=== PATIENT | female | born 1990 | race Caucasian/White ===

== ENCOUNTER 2024-08-10 14:27 | Outpatient (CLI) | payer MEDICAID, SELFPAY ==
--- NOTE | 2024-08-10 14:45 | CRLHL7_ITS ---
For Patients: As a result of the Century Cures Act, medical imaging exams and procedure reports are released immediately into your electronic medical record. You may view this report before your referring provider. If you have questions, please contact your health care provider. INDICATION: 33 year-old female. First trimester scan, establish dates. COMPARISON: None TECHNIQUE: Real-time johnson-scale imaging of the pelvis was performed. FINDINGS: Sonographic imaging demonstrates a single living intrauterine gestation. The embryo demonstrates a regular cardiac rate measuring 163 beats per minute. The embryo`s crown-rump length measurement of 2.3 cm corresponds to a gestational age of 9 weeks 0 days with a sonographic due date of March 15, 2025. There is a normal-appearing yolk sac measuring 3 mm. There are no gross abnormalities noted within the embryo at this early state of development. The placenta has not yet developed. The gestational sac has a normal appearance. Subchorionic hemorrhage anteriorly measuring 30 x 11 x 13 mm. The amount of fluid within the sac appears appropriate for gestational age. The cervix is closed. The myometrium appears normal. The ovaries are of normal size. The right ovary measures 2.6 x 1.7 x 1.4 cm. The left ovary measures 3.3 x 2.5 x 2.5 cm contains a small corpus luteum cyst of . There are no suspicious fluid collections noted in the cul-de-sac. IMPRESSION: Single living intrauterine . Gestational age calculated at 9 weeks 0 day with a sonographic due date of March 15, 2025. Subchorionic hemorrhage. Dictated by Monty Montez MD @ 08/11/2024 9:58:23 AM (Electronically Signed)
== END 2024-08-10 14:28 | disposition home or self-care (01) ==
PROVIDERS: Visit Provider Registered Nurse
DX: Z34.91 Encounter for supervision of normal pregnancy, unspecified, first trimester (principal); O20.9 Hemorrhage in early pregnancy, unspecified; Z3A.09 9 weeks gestation of pregnancy
CPT/HCPCS: 76817; 83021; 86592; 86703; 86704; 86706; 86762; 86787; 86803; 86850; 86900; 86901; 87086; 87340; 87491; 87591

== ENCOUNTER 2024-08-10 16:03 | Outpatient (CLI) | payer MEDICAID, SELFPAY ==
[2024-08-10 21:56] LABS: Chlamydia DNA Amplified* NOT DETECTED (No Detected); GC DNA Amplified* NOT DETECTED (No Detected)
== END 2024-08-10 16:04 | disposition home or self-care (01) ==
PROVIDERS: Visit Provider Registered Nurse
DX: Z34.91 Encounter for supervision of normal pregnancy, unspecified, first trimester (principal); Z3A.09 9 weeks gestation of pregnancy
CPT/HCPCS: 83021; 86592; 86703; 86704; 86706; 86762; 86787; 86803; 86850; 86900; 86901; 87086; 87340; 87491; 87591

== ENCOUNTER 2024-10-26 14:46 | Outpatient (CLI) | payer MEDICAID, SELFPAY | END 2024-10-26 14:47 | disposition home or self-care (01) | LOC: US 14:47 | PROVIDERS: Visit Provider Advanced Practice Midwife | DX: Z34.92 Encounter for supervision of normal pregnancy, unspecified, second trimester (principal); Z3A.20 20 weeks gestation of pregnancy | CPT/HCPCS: 76805 ==

== ENCOUNTER 2024-12-22 14:46 | Outpatient (CLI) | payer MEDICAID, SELFPAY | END 2024-12-22 14:47 | disposition home or self-care (01) | LOC: NFLDREF 12-26 07:04 | PROVIDERS: Visit Provider Advanced Practice Midwife | DX: Z34.93 Encounter for supervision of normal pregnancy, unspecified, third trimester (principal); Z3A.28 28 weeks gestation of pregnancy | CPT/HCPCS: 86592 ==

== ENCOUNTER 2025-01-19 14:22 | Outpatient (CLI) | payer MEDICAID, SELFPAY | END 2025-01-19 14:23 | disposition home or self-care (01) | LOC: NFLDREF 01-26 03:12 | PROVIDERS: Visit Provider Advanced Practice Midwife | DX: O99.019 Anemia complicating pregnancy, unspecified trimester (principal); D64.9 Anemia, unspecified; Z3A.32 32 weeks gestation of pregnancy | CPT/HCPCS: 82728 ==

== ENCOUNTER 2025-02-16 13:49 | Outpatient (CLI) | payer MEDICAID, SELFPAY ==
[2025-02-17 15:04] LABS: Strep B DNA Probe Negative (Negative)
[2025-02-17 15:05] LABS: Strep B Susceptibility Needed? No
== END 2025-02-16 13:50 | disposition home or self-care (01) ==
LOC: NFLDREF 13:49
PROVIDERS: Visit Provider Advanced Practice Midwife
DX: Z34.93 Encounter for supervision of normal pregnancy, unspecified, third trimester (principal); Z3A.36 36 weeks gestation of pregnancy
CPT/HCPCS: 82728; 87081; 87653

== ENCOUNTER 2025-02-24 11:48 | Outpatient (RCR) | payer MEDICAID, SELFPAY ==
--- NOTE | 2025-02-22 10:43 | ONC.NURNOTE ---
Diagnosis: Iron deficiency anemia in
[2025-02-24 12:11] VITALS: BP 118/74; PULSE 96; RESP 16; TEMP 36.4; O2SAT 100
[2025-02-24] MEDS: IRON DEXTRAN COMPLEX 25 MG in 0.9 % SODIUM CHLORIDE 100 ml 100 ML 402 MG IVPB (12:58)
[2025-02-24 13:20] VITALS: BP 114/75; PULSE 92; RESP 16; TEMP 36.6; O2SAT 98
[2025-02-24] MEDS: IRON DEXTRAN COMPLEX 975 MG in 0.9 % SODIUM CHLORIDE 250 ml 250 ML 270 MG IVPB (14:20)
[2025-02-24] MEDS: ACETAMINOPHEN 325 MG TABLET 650 MG PO (15:29)
[2025-02-24] MEDS: CALCIUM CARBONATE 500 MG CHEW 1000 MG PO (15:30)
--- NOTE | 2025-02-24 16:18 | ONC.NURNOTE ---
INFeD Adverse Effects 45 min into Infed primary infusion pt notes heart burn and headache. She notes she does get heartburn occasionally r/t , but the food she's eating currently does not cause it. She is drinking coffee, sparkling water and eating chocolate covered espresso beans currently. She manages with Tums prn effectively. Pt also notes slight headache; not sure if related to iron infusion or just spontaneous. She denies s/s anaphylaxis. Stopped iron infusion. VSS. Reviewed with Sarika Childers APRN; recommend contacting ordering provider, Shwetha Wakefield CNM to discuss order for Tums, as pt does not have Tums with her. Per Shwetha, give 1000 mg Tums and 650 mg Tylenol x 1 orally. Pt agreeable to this plan. Gave at 1530. Symptoms resolved at 1600. Resumed last 15 min of iron infusion. Completed without incident.
[2025-02-24 16:38] VITALS: BP 113/73; PULSE 85; RESP 20; TEMP 36.9; O2SAT 97
[2025-02-24] MEDS: SODIUM CHLORIDE 0.9 % (FLUSH) 10 ML SYRINGE IVF (16:48)
[2025-02-24 17:30] VITALS: BP 123/74; PULSE 94; RESP 18; TEMP 37; O2SAT 98
== END 2025-08-23 23:59 | disposition home or self-care (01) ==
LOC: CCIC 11:48
PROVIDERS: Visit Provider Clinical Nurse Specialist
DX: O99.013 Anemia complicating pregnancy, third trimester (principal); D50.9 Iron deficiency anemia, unspecified
CPT/HCPCS: 96365; A9270; J1750; J7050

== ENCOUNTER 2025-03-04 18:58 | Outpatient (CLI) | payer MEDICAID, SELFPAY ==
[2025-03-04 19:10] VITALS: BP 133/84; PULSE 100; PULSE 107; O2SAT 98
[2025-03-04 19:52] LABS: Amnisure Rom* Negative
--- NOTE | 2025-03-04 20:46 | PC.OBNST ---
NST Note NST Note Start: 03/04/25 20:45 Freq: ONCE Status: Active Protocol: Document 03/04/25 20:45 ARAMIS (Rec: 03/04/25 20:46 ARAMIS [id number]) NST Note EDC 03/11/25 Gestational Age In 39 Weeks & 0 Days Weeks & Days Patient Presented Contractions/cramping with Complaint(s) of Reactive Yes Appropriate for Yes Gestational Age SERA Saha RN Date 03/04/25 Reactive Yes Appropriate for Yes Gestational Age SERA Castle CNM Date 03/04/25 OB NST charge Yes Complete NST Note Yes via Write Note The provider's electronic signature indicates the NST is reactive/appropriate for gestational age. *Note to provider: If an addendum is required, open the patient's chart and click on the note under the Nurse/Allied Health tab.
== END 2025-03-04 20:47 | disposition home or self-care (01) ==
LOC: OB OUT 19:01 → OB 19:07
PROVIDERS: Visit Provider Advanced Practice Midwife
DX: O47.1 False labor at or after 37 completed weeks of gestation (principal); Z3A.39 39 weeks gestation of pregnancy
CPT/HCPCS: 59025; 84112; G0463

== ENCOUNTER 2025-03-08 22:22 | Outpatient (CLI) | payer MEDICAID, SELFPAY ==
[2025-03-08 22:36] VITALS: BP 121/77; PULSE 88
--- NOTE | 2025-04-24 16:02 | PC.OBNST ---
NST Note NST Note Start: 03/08/25 22:25 Freq: ONCE Status: Discharge Protocol: Document 03/08/25 23:55 WALLACE (Rec: 03/08/25 23:58 WALLACE [id number]) NST Note 3 Para (# of births) 2 EDC 03/11/25 Gestational Age In 39 Weeks & 4 Days Weeks & Days Patient Presented Contractions/cramping with Complaint(s) of Reactive Yes RN Keagan Tsai, RN Date 03/08/25 Reactive Yes SERA Mueller RN Date 03/08/25 OB NST charge Yes Complete NST Note Yes via Write Note The provider's electronic signature indicates the NST is reactive/appropriate for gestational age. *Note to provider: If an addendum is required, open the patient's chart and click on the note under the Nurse/Allied Health tab.
== END 2025-03-09 00:35 | disposition home or self-care (01) ==
LOC: OB OUT 22:22 → OB 22:22
PROVIDERS: Visit Provider Advanced Practice Midwife
DX: O47.1 False labor at or after 37 completed weeks of gestation (principal); Z3A.39 39 weeks gestation of pregnancy
CPT/HCPCS: 59025; G0463; A9270; J2270

== ENCOUNTER 2025-03-09 16:40 | Inpatient (IN) | payer MEDICAID, SELFPAY ==
[2025-03-09] VITALS (9 sets, daily range): BP systolic 126–142; BP diastolic 77–86; PULSE 79–108; TEMP 36.5–36.8; O2SAT 97–100; BMI 26.2
--- NOTE | 2025-03-09 16:38 | W.PM.LDBA ---
Subjective History of Present Illness Narrative: Patient is being admitted to Labor and Delivery for spontaneous labor at term. She is a 34 year old at 39.5 weeks gestation. Her full history and physical was dictated by Laura Wakefield CNM on 02/23/25. Please see this for details. She was seen in triage overnight but did not make cervical change. She was seen in the clinic today and was found to be 4.5cm/90%. Since her appointment she has 'lost more mucus plug and has been robert. She states that they have been increasing in intensity and frequency since that time. She denies leaking fluid or bleeding and is appreciating good movement. On exam after arrival she was found to be 6cm/90%/-2. We discussed the option of AROM but she is desiring to wait at this time. Agreeable with this plan. Se desires to labor in the tub but declines water . offered to have her sign so she has the option but declines. Specific Issues/Plans G 3 P 2001 H&P by Laura Wakefield CNM 02/23/25 : Kartik, Its a boy! #Anemia Hgb 8.6 at 28 weeks iron supplements ordered, taking Vit C supplement already Recheck Hgb at 32 week: 9.0, improving after just 2 weeks, desires to continue oral Recheck hgb at 36 weeks: 8.7-initiating IV iron infusions, completed 02/24 # History of anemia during both previous pregnancies. Both required iron infusions. # Scoliosis Anesthesia referral placed 11/23/24. Declines. # Fundal placenta location per M. Recommend care during 3rd stage to prevent uterine inversion. Imaging: Anatomy US-10/28/24-1. Concordance of sonographic and clinical age. 2. Normal anatomic survey. 3. Increased retroplacental vascularity could suggest placenta accreta spectrum disorder. Follow-up in 1-2 weeks recommended for repeat assessment. M US 11/01/24-No anomalies noted and growth appropriate. Placenta and uteroplacental interface appear WNL. Fundal location of placenta noted. Care during 3rd stage to reduce risk of uterine inversion. Vaccinations: Flu: Recommended. Declines. Covid: Recommended booster. Declines. Tdap: 02/02/25 RSV: [] 32 week mental health: PHQ9 5, GAD7 0 Last pap: May 2022, normal according to patient report. Denies history of abnormal Paps. OB - Problem Based A/P Additional Plan (1) Pain during labor: Status: Acute (2) Scoliosis (and kyphoscoliosis), idiopathic: Status: Acute (3) Anemia affecting , antepartum: Status: Acute Plan ASSESSMENT:? at 39.5 weeks gestation? GBS negative? complicated by: amenia requiring IV iron infusions, scoliosis, and fundal placenta? Elevated BP on admit? Postterm IOL? Blood type:?B+ ?? PLAN:? 1. Candidate for analgesia of choice. Planning unmedicated .?May desire hydrotherapy but declines water . 5. Offered AROM but declines at this time. Will consider if labor stalls or per patient preference. 6. Anticipate ? 7. Expectant management at this time.? 8. Intermittent auscultation per policy unless patient condition changes. Delivery/Labor/Induction Plan Plan: expectant management OB Result Labs Blood Type: B (+) positive Rubella: immune RPR/VDLR: nonreactive GBS Status: negative HBsAG: negative OB Exam Physical Exam Vital signs: Temp Pulse BP Pulse Ox 98.2 F 81 131/80 100 03/09/25 16:02 03/09/25 16:02 03/09/25 16:02 03/09/25 16:03 Narrative: Psychiatric:? Alert and oriented x3? HEENT:? Normocephalic, atraumatic? Neck:? Supple without adenopathy or thyromegaly? Lungs:? Clear to auscultation bilaterally? Heart:? Regular rate and rhythm, no murmur, rub or gallop? Abdomen:? Soft, nontender, and gravid? Extremities:? No edema or erythema? Detailed Labor and Delivery Exam Dilation (cm): 6 Effacement (%): 90 Cervix position: mid Consistency: soft Contraction Frequency: 2-6 Tachysystole: No Contraction intensity: Strong/Firm Fetus (Single) Station: -2 Amniotic Membrane Status: intact Heart Rate Baseline: 120 Monitor Accelerations: Present Monitor Decelerations: None Electromechanical Assembly Technician Variability: Moderate (6-25)
[2025-03-09 17:55] LABS: Hematocrit 37.0 % (33.0-51.0); Hemoglobin* 11.1 gm/dL (12.0-16.0); Immature Granulocytes Abs Auto 0.10 K/uL (0.00-0.30); Immature Granulocytes Pct Auto 0.8 %; Mean Corpuscular HGB Conc 30 gm/dL (32-36); Mean Corpuscular Hemoglobin 22 pg (26-34); Mean Corpuscular Volume 74 fL (80-100); RDW Coefficient of Variation % 27.6 % (11.5-15.5); Red Blood Count 4.97 m/uL (4.00-5.20); White Blood Count* 13.20 K/uL (4.50-11.00)
[2025-03-09 18:08] LABS: Lymphocytes Absolute Auto 2.00 K/uL (0.90-2.90); Slide Review Reflex Yes
[2025-03-09 19:49] LABS: Slide Review Acceptable Review (Acceptable)
--- NOTE | 2025-03-09 22:13 | P.OBPN_ITS ---
Subjective Time Seen by Provider: 21:45 Date Seen: 03/09/25 Narrative: Mame continues to contract every 2-4 minutes. She feels they are closer together than they were initially but about the same intensity. She has been encouraged by me and the RN to ambulate and use labor warm up or miles circuit to encourage and promote physiologic labor but has been staying in bed to this point. She was agreeable to a SVE and was found to be mostly unchanged at 6cm/90%/-1. We again discussed AROM but declines. She would like to reevaluate for possible AROM again in 2-3 hours. Again encouraged upright positions and gravity in addition to the prior recommendations to promote labor and cervical change and discussed the benefits of this. Verbalizes understanding. Objective Vital Signs: Last Vital Signs Temp 97.7 F 03/09/25 19:17 Pulse 79 03/09/25 20:56 BP 139/82 03/09/25 20:56 Pulse Ox 98 03/09/25 20:25 Pelvic Exam Dilation (cm): 6 Effacement (%): 90 Station: -1 Contractions Monitor mode: External Contraction Frequency: 2-4 Contraction pattern: Regular Contraction intensity: Moderate (some strong) Assessment Assessment: active labor Station: -1 Status: Category l Heart Rate Baseline: 120 Senior Living Variability: Moderate (6-25) Monitor Accelerations: Present Monitor Decelerations: None Plan Plan: at 39.5 weeks gestation? GBS negative? complicated by: amenia requiring IV iron infusions, scoliosis, and fundal placenta? Blood type:?B+ Reassuring with intermittent monitoring Labor type:active labor Labor complicated by: unchanged cervical dilation in >4 hours ?? PLAN:? 1. Candidate for analgesia of choice. Planning unmedicated .?May desire hydrotherapy but declines water . 2. Offered AROM again but declines at this time. Would like to reevaluate in 2-3 hours and will consider AROM at that time. 3. Anticipate ? 4. Expectant management at this time.? 5. Patient encouraged to reposition and ambulate to promote physiologic labor and . 6. Intermittent auscultation per policy unless patient condition changes. ??
[2025-03-10] VITALS (30 sets, daily range): BP systolic 122–185; BP diastolic 81–100; PULSE 72–111; RESP 14–17; TEMP 36.4–36.9; O2SAT 96–100
--- NOTE | 2025-03-10 00:36 | P.OBPN_ITS ---
Subjective Time Seen by Provider: 00:36 Date Seen: 03/10/25 Narrative: Mame has continued to contract regularly every 2-4 minutes and is coping very well with contractions. Minimal cervical change has been noted and no change in this exam from the last. Discussed again AROM option. She is agreeable to that at this time. Scant amount of clear fluid was noted with AROM. Pt tolerated well. Will continue to mointor for leaking of fluid given the mimimal amount noted. Objective Vital Signs: Last Vital Signs Temp 98.1 F 03/09/25 23:06 Pulse 88 03/09/25 23:06 BP 130/84 03/09/25 23:06 Pulse Ox 98 03/09/25 20:25 Pelvic Exam Dilation (cm): 7 Effacement (%): 90 Station: -1 Contractions Monitor mode: External Contraction Frequency: 2-4 Contraction pattern: Regular Contraction intensity: Moderate (some strong) Assessment Assessment: active labor Station: -1 Amniotic Membrane Status: AROM Status: Category l Heart Rate Baseline: 125 Residential Variability: Moderate (6-25) Monitor Accelerations: Present Monitor Decelerations: None Plan Plan: at 39.6 weeks gestation? GBS negative? complicated by: amenia requiring IV iron infusions, scoliosis, and fundal placenta? Blood type:?B+ Reassuring with intermittent monitoring Labor type: active labor Labor complicated by: slow cervical change ?? PLAN:? 1. Candidate for analgesia of choice. Planning unmedicated .?May desire hydrotherapy but declines water . 2. AROM with scant amount of clear fluid. Will continue to monitor for leaking of fluid. 3. Anticipate ? 4. Expectant management at this time.? 5. Patient encouraged to reposition and ambulate to promote physiologic labor and . 6. Intermittent auscultation per policy unless patient condition changes.
[2025-03-10 02:12] LABS: Hematocrit 35.2 % (33.0-51.0); Hemoglobin* 10.6 gm/dL (12.0-16.0); Mean Corpuscular HGB Conc 30 gm/dL (32-36); Mean Corpuscular Hemoglobin 22 pg (26-34); Mean Corpuscular Volume 74 fL (80-100); Red Blood Count 4.74 m/uL (4.00-5.20); White Blood Count* 12.27 K/uL (4.50-11.00)
[2025-03-10 02:17] LABS: Slide Review Reflex No
[2025-03-10 02:27] LABS: Alanine Aminotransferase* 94 U/L (4-35); Aspartate Amino Transferase* 66 U/L (12-35); Blood Urea Nitrogen* 8 mg/dL (5-24); Creatinine* 0.6 mg/dL (0.5-1.5); Est. Creatinine Clearance* 125.30; Estimated Glomerular Filt Rate 122 ml/min
--- NOTE | 2025-03-10 05:26 | P.OBPN_ITS ---
Subjective Date Seen: 03/10/25 Narrative: Mame has continued to contract but her contraction have started to space somewhat over the last couple of hours. She is robert every 2-6 minutes and more irregularly. She endorses that they feel about the same to her, she is continuing to cope well and remains in bed despite encouragement for position changes. She is able to rest between contractions. She is continuing to leak a small amount of clear fluid per her report and as noted on her pad mixed with normal discharge. On SVE she was only slightly more dilated fro 7-7.5 but otherwise unchanged in station or effacement. We discussed stalled labor and she is agreeable to Pitocin augmentation. Blood pressures have been elevated mostly 130-140/80's with an occasional reading in the 120's. AST and ALT are elevated at 66 and 94 respectively. P/C ratio not collected due to ROM. Denies headaches, RUQ pain or visual changes. Objective Vital Signs: Last Vital Signs Temp 97.8 F 03/10/25 03:55 Pulse 96 03/10/25 04:55 BP 131/89 03/10/25 04:55 Pulse Ox 98 03/09/25 20:25 Pelvic Exam Dilation (cm): 7.5 Effacement (%): 90 Station: -1 Contractions Monitor mode: External Contraction Frequency: 2-6 Contraction pattern: Regular Contraction intensity: Moderate (some strong) Assessment Assessment: prodromal labor Station: -1 Amniotic Membrane Status: AROM Status: Category l Heart Rate Baseline: 120 Associate Trainer Variability: Moderate (6-25) Monitor Accelerations: Present Monitor Decelerations: None Plan Plan: at 39.6 weeks gestation? GBS negative? complicated by: amenia requiring IV iron infusions, scoliosis, and fundal placenta? Blood type:?B+ Reassuring with continuous monitoring Preeclampsia without severe features based on elevated blood pressure not in severe range and ALT >2 times normal range Labor type: active labor Labor complicated by: slow cervical change ?? PLAN:? 1. Candidate for analgesia of choice. Planning unmedicated .?May desire hydrotherapy but declines water . 2. Reviewed expectant management vs Pitocin augmentation. She is agreeable to augmentation. 3. Continue to monitor blood pressures and symptoms. 4. Anticipate ?? 5. Patient encouraged to reposition and ambulate to promote physiologic labor and . 6. Continuous monitoring per policy. 7. IV placement for Pitocin titration.
[2025-03-10] MEDS: OXYTOCIN 30 unit/500 ML in NS 30 UNIT/500 ML BAG IVPB (05:36)
[2025-03-10] MEDS: LACTATED RINGERS 1000 ML 1,000 ML 75 ML IV ×2 (05:37→19:06)
--- NOTE | 2025-03-10 09:43 | P.OBPN_ITS ---
Subjective Time Seen by Provider: 09:30 Date Seen: 03/10/25 Narrative: Mame is a at 39 6/7 weeks gestation that presented last evening in spontneous labor. Her labor stalled overnight and she was augmented with AROM and IV pitocin. She continues on pitocin at this time and is coping well, just starting to feel more contractions. She has been encouraged to changes positions but doesn't feel she has been able to due to contraction pain. She is coping well with contractions at this time and supported in labor by her . We discussed plan of care to increase pitocin at this time. SVE at 0833 shows minimal change with head now well applied to the cervix. In review of pat ients chart and labs, it was noted that ALT was 94, twice the upper limit of normal meeting criteria for pre-eclampsia with severe features. Dr. Castillo was consulted and agrees with diagnosis. Objective Exam: Objective: Constitutional: Alert and oriented x3, moderate distress, coping well Vital signs stable, see nurse documentation Abdomen: gravid, contractions palpate moderate/strong with contractions and soft between Cervix: 7 cm/90%/0 station/vertex NST: 120 bpm/moderate variability/15x15 accelerations/no de celerations/contractions every 2-3 minutes Vital Signs: Last Vital Signs Temp 98.3 F 03/10/25 09:25 Pulse 85 03/10/25 09:28 BP 152/97 H 03/10/25 09:28 Pulse Ox 98 03/09/25 20:25 Assessment Amniotic Membrane Status: AROM Status: Category l Heart Rate Baseline: 120 Monitor Accelerations: Present Monitor Decelerations: None Plan Plan: at 39.6 weeks gestation? GBS negative? complicated by: amenia requiring IV iron infusions, scoliosis, and fundal placenta? Blood type:?B+ Reassuring with continuous monitoring Preeclampsia severe features based on elevated blood pressure not in severe range and ALT >2 times normal range Labor type: active labor Labor complicated by: Protracted active labor ?? PLAN:? 1. Candidate for analgesia of choice. Planning unmedicated . 2. Continue with Pitocin augmentation for protracted active labor. 3. Reviewed labs results with Dr. Castillo who was consulted for ALT >2x normal range. Initiated Magnesium sulfate and repeat labs ordered. Dr. Elan fuller will co-manage during labor and assume care . Plan of care reviewed with patient who reports understanding and agrees with plan. 4. Continue to monitor blood pressures, reviewed that we would treat elevated BP's depending on severity but potential for oral treatment if they persist . 5. Patient encouraged to reposition and ambulate to promote physiologic labor and . 6. Continuous monitoring per policy. 7. Anticipate vaginal delivery.
[2025-03-10] MEDS: MAGNESIUM IV 4 GM/100 ML PIGGYBACK IVPB (10:12)
[2025-03-10 10:16] LABS: Hematocrit 36.3 % (33.0-51.0); Hemoglobin* 11.0 gm/dL (12.0-16.0); Mean Corpuscular HGB Conc 30 gm/dL (32-36); Mean Corpuscular Hemoglobin 22 pg (26-34); Mean Corpuscular Volume 74 fL (80-100); Red Blood Count 4.91 m/uL (4.00-5.20); White Blood Count* 12.80 K/uL (4.50-11.00)
[2025-03-10 10:17] LABS: Slide Review Reflex No
[2025-03-10 10:28] LABS: Alanine Aminotransferase* 104 U/L (4-35); Aspartate Amino Transferase* 67 U/L (12-35); Blood Urea Nitrogen* 7 mg/dL (5-24); Creatinine* 0.6 mg/dL (0.5-1.5); Est. Creatinine Clearance* 128.58; Estimated Glomerular Filt Rate 122 ml/min
[2025-03-10] MEDS: MAGNESIUM Infusion 40 GM/1,000 ML IV.SOLN IVPB (10:48)
--- NOTE | 2025-03-10 11:42 | W.PM.OBVAGDE ---
OB Procedure Vag Delivery Mother Details Mother Details: The patient is a 34 year-old, 3, now Para 3, admitted on 03/09/25 at 39.5 weeks gestation. : 3 Para: 3 Weeks Gestation: 39.3 Admission Date: 03/09/25 Additional Details Amniotic Membrane Status: AROM Amniotic Membrane Rupture Date: 03/10/25 Amniotic Membrane Rupture Time: 00:33 Amniotic Membrane Fluid Description: Clear Analgesia/Anesthesia Type: None Waterbirth: No Pitcoin: Yes Intrapartal Events: Labor Augmentation Delivery augmentation: rupture of membranes and pitocin Labor Onset: 17:33 Complete: 10:52 Pushin:52 Heart: heart tones during second stage were reassuring as 2nd stage was only 1 push. Delivery Details Delivery Date: 03/10/25 Delivery Time: 10:53 Route of delivery: Gender: Male Infant Viability: Alive; Heart Rate Present Delivery Details: Patient was admitted for spontaneous onset of labor but stalled at 7 cm. Her protractive active labor was managed with augmentation of AROM and pitocin. AROM of clear fluid at 0033 did not increase contraction frequency, therefore pitocin was started around 530 am. Labor was complicated by elevated blood pressures and labs were consistent with Pre-eclampsia with SF. She was started on IV magnesium sulfate around 958. She was encouraged to move to help labor progression but felt it was too uncomfortable. CNM was at bedside when patient starting to feel pressure but when it did not change, she stepped away. She was again encouraged to move and when patient turned, she felt a strong urge to push the told the nurse she felt the head was out. Patient was assumed complete with her one push at 1052, CNM was urgently called back to bedside. of a viable male at 1053, delivered by the RNJoy. Per RN, uncomplicated Vertex delivered OA. No nuchal cord or shoulder. Body delivered easily and without incident. 2nd RN at bedside at time of delivery. CNM arrived to room about 2 minutes after delivery. was placed on mothers abdomen with a vigorous cry. Cord was clamped and cut at > 5 minutes. APGARS were 9 at one minute and 9 at five minutes respectively. Intact placenta with a 3 vessel cord delivered spontaneously at 1102. Fundus firm. 1st degree vaginal laceration identified and repaired in typical fashion. QBL 650 cc. Bleeding resolved with aggressive fundal massage, mother declined catheter but was able to sit on the bedpan to attempt to void. Fundal massage did express some urine and uterine bleeding improved. AMTSL with IV pitocin. Mother and baby stable; mother plans to breastfeed. Infant weight 7lb 12oz. 1 Minute Interval Total Score: 9 5 Minute Interval Total Score: 9 Additional Details Shoulder Dystocia: No Placenta Delivery Time: 11:02 Placental Delivery Description: Spontaneous Delivery repair: Vicryl Procedure Done: Global Blood Loss: 650 Laceration: Perineal - 1st Degree Blood Loss Measurement Type: QBL Bakri Used: No Sponge/Need Count Correct: Yes Cord Vessel Description: 3 Vessels Event Summary Status: Mother and were stable after delivery. Care to be assumed by MD for management of Pre-eclampsia with SF. Disposition: floor
[2025-03-10] MEDS: ACETAMINOPHEN 500 MG TABLET 1000 MG PO ×2 (11:59→20:09)
--- NOTE | 2025-03-10 15:07 | P.OBCN_ITS ---
OB - CN: HPI Date of Consult Time Seen by Provider: 16:15 Date Seen: 03/10/25 Patient: [facility] Patient Consult date: 03/10/25 Requesting Physician: Chani Castle CNM Primary Care Provider: Not a Local Provider Consult Narrative Reason for consult: other (Preeclampsia with severe features) Narrative: Mame is a 34 year old G 3 P 3 who is status post normal spontaneous vaginal delivery this morning at 10:53 a.m.. She had a male infant. Her intrapartum course was complicated by elevated blood pressure and abnormally elevated transaminases at 2:00 a.m. this morning: ALT 94 and AST 66. She met criteria for severe preeclampsia by elevated liver enzymes at that time that was not identified by the [facility] caring for the patient. Chani Castle CNM noted the transaminitis when she was contacted this morning by nursing staff for a severe- range BP at 9:28am 185/95 on repeat was 152/92. When the transaminitis was identified, Chani requested a consultation for preeclampsia with severe features. She was started on magnesium sulfate for seizure prophylaxis and pre eclampsia labs were ordered STAT then Q6hr x4. Mame denies headaches, RUQ pain, visual disturbance and swelling. She is doing relatively well on magnesium: feels more tired than she would expect after a vaginal delivery and feels dizzy/woozy when she gets up. Denies weakness and SOB. I reviewed risks of preeclampsia and that she may need to be started on antihypertensive medication(s) temporarily as preeclampsia resolves. I reassured the patient that these medications are safe for breast feeding. History of Present Dating criteria: based on LMP care: good care Ultrasounds: normal 1st trimester US and normal mid trimester US complications: preeclampsia and other (anemia requiring iron infusions) History History 3 Elective abortions Para 3 Spontaneous abortions Hx # Term Pregnancies Ectopic pregnancies Hx # Pregnancies Multiple births Number of Living Children 2 Past Pregnancies Del. Date GA/Weeks Outcome Route wt Inf Gender Labor Lgth Anesthesia Location Provider Compli 05/25/20 39 live - full term 7 lb 11.8 oz Fema le 5.5hrs, 13 min pushing none [facility] 11/16/22 39 live - full term 8 lb 7 oz Female 5hrs labor, 5 min pushing [facility] Delivery Date: 11/16/22 Last Updated by: Shwetha Wakefield CNM anemia, IOL with AROM Labs Blood type: B (+) positive Rubella: immune RPR/VDLR: nonreactive GBS status: negative HBsAG: negative OB Labs: Lab Assessment Start: 03/09/25 16:38 Freq: ONCE Status: Complete Protocol: PC.OBGBS Activity Type Activity Date Activity User E-sign Co-sign Detail Recorded Client Recorded Date Recorded By Document 03/09/25 16:46 HCR [id number] 03/09/25 16:52 HCR 03/09/25 16:46 Lab Assessment GBS Status negative GBS Additional Criteria None No Treatment Needed OK Are Labs Available Yes Maternal Blood Type B Maternal RH Factor Positive Evaluate Maternal Rubella Immune Status Immune Hepatitis B Surface Antigen Negative Maternal HIV Status Negative Maternal Syphillis (RPR) Status Negative PFSH PFSH Medical History Acne ?L70.9 - Acne, unspecified (ICD-10) Varicella ?B01.9 - Varicella without complication (ICD-10) Spontaneous vaginal delivery ?O80 - Encounter for full-term uncomplicated delivery (ICD-10) Iron deficiency anemia ?D50.9 - Iron deficiency anemia, unspecified (ICD-10) Anemia complicating ?O99.019 - Anemia complicating , unspecified trimester (ICD-10) Surgical History H/O eye surgery ?Z98.890 - Other specified postprocedural states (ICD-10) Family History Father High blood pressure High cholesterol Mother High cholesterol Social History Narrative: [place]. Lives in [place]. What is your current living situation?: I presently have a place to live Problems where you live: no known problems In the past 12 months, utilities in danger of being shut off: no In past 12 months, lack of transportation kept you from medical appts, meetings, work, or getting things needed for daily living: no In the past 12 mos, have been you worried that your food would run out before you had money to buy more?: never true In the past 12 mos, the food you bought just didn't last and you didn't have mon ey to buy more?: never true Smoking Status: Never smoker How often does anyone, including family, friends and others, physically hurt you : never How often does anyone, including family, friends and others, insult or talk down to you: never How often does anyone, including family, friends and others, threaten you with harm: never How often does anyone, including family, friends and others, scream or curse at you: never Meds Home Medications and Allergies Home Medications ?Medication ?Instructions ?Recorded ?Confirmed ?Type biotin 10,000 mcg chewable tablet mcg PO 08/10/2405/26 History (Hair, Skin and Nails (biotin)) docosahexaenoic acid 200 mg mg PO 08/10/24 03/09/25 Hi story capsule ( DHA) vitamin D3 1,250 mcg (50,000 cap PO 08/10/24 03/09/25 History unit)-vitamin K2 200 mcg capsule ascorbate calcium (vitamin C) 500 500 mg PO QDAY 09/1503/10/25 History mg tablet calcium carbonate (Tums) 200 mg PO BID 11/23/2403/10 History magnesium glycinate mg PO .QD 02/02/25 03/09/25 History Allergies Allergy/AdvReac Type Severity Reaction Status Date / Time grass pollen Allergy Mild Verified 03/09/25 15:57 mold Allergy Mild Verified 03/09/25 15:57 tree pollen Allergy Mild Uncoded 03/09/25 13:18 OB - H&P: Exam Physical Exam: Vital signs: Temp Pulse Resp BP Pulse Ox O2 Del Method 97.9 F 107 H 16 132/89 96 Room Air 03/10/25 14:55 03/10/25 14:55 03/10/25 14:55 03/10/25 14:55 03/10/25 14:55 03/10/25 14:55 Narrative: General: Pleasant, well-groomed woman in no acute distress. Vital signs: per the patient's EMR Heart: Regular rate and rhythm without gallop, rub or murmur. Chest: Clear to auscultation bilaterally. Abdomen: Uterus is firm, midline at the umbilicus. Otherwise: soft, nontender and nondistended with normal bowel sounds throughout. Extremities: No pain or edema Neurologic: DTR's at bilateral patella: 2+/2, no clonus OB - Results Labs Labs: Short CBC 03/09/25 03/10/25 03/10/25 Range/Units 17:49 02:00 10:05 WBC 13.20 H 12.27 H 12.80 H (4.50-11.00) K/uL Hgb 11.1 L 10.6 L 11.0 L (12.0-16.0) gm/dL Hct 37.0 35.2 36.3 (33.0-51.0) % Plt Count 239 247 262 (140-440) K/uL BMP 03/10/25 03/10/25 02:00 10:05 BUN 8 7 Creatinine 0.6 0.6 Liver Function 03/10/25 03/10/25 Range/Units 02:00 10:05 AST 66 H 67 H (12-35) U/L ALT 94 H 104 H (4-35) U/L OB - CN: A/P Assessment and Plan (1) Pain during labor: Status: Deleted (2) Severe preeclampsia: Status: Acute Plan 1. Continue magnesium sulfate for seizure prophylaxis until 24hr (10:53Am on 03/11) 2. Continue serial preeclampsia labs every 6hr x4. 3. Start Nifedipine ER 30mg daily for BP control. Modify dose if needed. 4. Continue care. 5. Dr. Jimena Granados to assume care on 03/11/25 at 7am.
[2025-03-10 17:18] LABS: Hematocrit 28.1 % (33.0-51.0); Hemoglobin* 8.5 gm/dL (12.0-16.0); Mean Corpuscular HGB Conc 30 gm/dL (32-36); Mean Corpuscular Hemoglobin 23 pg (26-34); Mean Corpuscular Volume 74 fL (80-100); Red Blood Count 3.78 m/uL (4.00-5.20); Slide Review Reflex No; White Blood Count* 15.52 K/uL (4.50-11.00)
[2025-03-10 17:39] LABS: Alanine Aminotransferase* 82 U/L (4-35); Aspartate Amino Transferase* 68 U/L (12-35); Blood Urea Nitrogen* 6 mg/dL (5-24); Creatinine* 0.5 mg/dL (0.5-1.5); Est. Creatinine Clearance* 154.30; Estimated Glomerular Filt Rate 128 ml/min
--- NOTE | 2025-03-10 22:49 | PM.EN ---
Chart Event Note Time Seen by Provider: 10:00 Date Seen: 03/10/25 Chart Event Note: Patient was escorted to the bathroom by her family member where she sat up from the bathroom and reports that she fell into the wall and bumped her head. Her family member was able to help her sit back down and the Nurse was notified. She was assisted to the bed and vitals were taken. RN reports a neuro exam was normal. Patient reports feeling light headed when getting up but improved when in the bed. She has not eaten for the last few hours and has not slept much today. She is also on IV magnesium for pre-eclampsia with SF. CNM was asked to see patient as MD provider was busy in the OR. CNM evaluated patient at bedside, no bruising noted on patient head, normal conversation and response. Findings are all WNL. Encouraged patient to try to eat something, offered some juice or caffeine, and encouraged rest. She agrees with plan. MD was made aware of findings. No further follow-up needed.
[2025-03-10 23:10] LABS: Hematocrit 29.1 % (33.0-51.0); Hemoglobin* 8.7 gm/dL (12.0-16.0); Mean Corpuscular HGB Conc 30 gm/dL (32-36); Mean Corpuscular Hemoglobin 23 pg (26-34); Mean Corpuscular Volume 76 fL (80-100); Red Blood Count 3.85 m/uL (4.00-5.20); White Blood Count* 13.60 K/uL (4.50-11.00)
[2025-03-10 23:16] LABS: Slide Review Reflex No
[2025-03-10 23:41] LABS: Alanine Aminotransferase* 84 U/L (4-35); Aspartate Amino Transferase* 57 U/L (12-35); Blood Urea Nitrogen* 5 mg/dL (5-24); Creatinine* 0.6 mg/dL (0.5-1.5); Est. Creatinine Clearance* 128.58; Estimated Glomerular Filt Rate 122 ml/min
[2025-03-11] VITALS (14 sets, daily range): BP systolic 113–129; BP diastolic 70–84; PULSE 79–107; RESP 16–20; TEMP 36.3–36.8; O2SAT 98–100
[2025-03-11 05:24] LABS: Hematocrit 24.2 % (33.0-51.0); Mean Corpuscular HGB Conc 31 gm/dL (32-36); Mean Corpuscular Hemoglobin 23 pg (26-34); Mean Corpuscular Volume 76 fL (80-100); Red Blood Count 3.20 m/uL (4.00-5.20); White Blood Count* 10.44 K/uL (4.50-11.00)
[2025-03-11 05:28] LABS: Hemoglobin* 7.4 gm/dL (12.0-16.0); Slide Review Reflex No
[2025-03-11 05:38] LABS: Alanine Aminotransferase* 63 U/L (4-35); Aspartate Amino Transferase* 39 U/L (12-35); Blood Urea Nitrogen* 4 mg/dL (5-24); Creatinine* 0.5 mg/dL (0.5-1.5); Est. Creatinine Clearance* 154.30; Estimated Glomerular Filt Rate 128 ml/min
[2025-03-11] MEDS: FERROUS SULFATE 325 MG TABLET PO (06:33)
[2025-03-11] MEDS: ACETAMINOPHEN 500 MG TABLET 1000 MG PO (06:38)
[2025-03-11] MEDS: LACTATED RINGERS 1000 ML 1,000 ML 75 ML IV (08:19)
--- NOTE | 2025-03-11 10:08 | P.OBPN_ITS ---
OB - PN:Subj Subjective Time Seen by Provider: 07:45 Date Seen: 03/11/25 Narrative: Mame is a 34 year old G 3 P 3 who is status post on 03/10 at 10:53 a.m with CNM service. QBL with delivery was 650mL, where bedside RN delivered the . She was noted to have elevated BPs (including nonsustained SRBP) and severe range transaminitis, meeting criteria for preE with SF. She was started on magnesium sulfate for seizure prophylaxis, serial HELLP labs have been obtained and started on nifedipine XL [address] Castillo's note from yesterday for complete details. Mame is overall feeling well today, just fatigued. She has intermittent headache, attributed to pain from a fall yesterday. She notes this responds to ibuprofen and Tylenol. She has decreased visual acuity and intermittent double vision, attributed to magnesium sulfate. No scotoma or evidence of SHOE DES[employer]ER irritability at this time. No right upper quadrant pain. Overnight, her blood pressures have been normal on nifedipine. Serial HELLP labs have demonstrated interval improvement in her transaminitis. She does have a down trending hemoglobin. Patient denies any dizziness/ lightheadedness, chest pain or dyspnea at rest. She notes she feels more stable on her feet, but at times may still feel a bit lightheaded. She attributes this symptoms to the magnesium. She notes that she is unable to tolerate p.o. pills well, where she cannot take her p.o. iron. She does have liquid iron that her is bringing. That said, I explained that she did not respond to this when so I do think a blood transfusion could be necessary versus repeat IV iron. She notes abdominal and perineal pain is well controlled. Describes minimal normal lochia. Tolerating p.o. intake without nausea vomiting. Voiding spontaneously, robust output. Passing flatus and BM. No calf tenderness, erythema or lower extremity swelling. OB - PN: Obj Exam Physical Exam: Vital signs: Temp Pulse Resp BP Pulse Ox O2 Del Method 97.6 F 90 16 123/82 99 Room Air 03/11/25 08:15 03/11/25 08:15 03/11/25 08:15 03/11/25 08:15 03/11/25 08:15 03/11/25 08:15 Narrative: VS reviewed and are within normal limits. Patient had been tachycardic overnight - resolved since 0 200 this morning. General: Alert and oriented, in no acute distress. Somewhat pale in appearance. Psych: Appropriate mood and affect Heart: Regular rate and rhythm without gallop, rub or murmur. Chest: Clear to auscultation bilaterally. Abdomen: Soft, nontender nondistended. Fundus palpated firm at umbilicus. Extremities: No peripheral edema. Calves without tenderness or erythema. OB - PN: Obj Data Labs Labs: Laboratory Results - last 24 hr 03/10/25 03/10/25 03/10/25 10:05 17:02 22:50 WBC 12.80 H 15.52 H 13.60 H RBC 4.91 3.78 L 3.85 L Hgb 11.0 L 8.5 L 8.7 L Hct 36.3 28.1 L 29.1 L MCV 74 L 74 L 76 L MCH 22 L 23 L 23 L MCHC 30 L 30 L 30 L Plt Count 262 280 277 BUN 7 6 5 Creatinine 0.6 0.5 0.6 Estimated Creat Clear 128.58 154.30 128.58 Estimated GFR 122 128 122 Magnesium 6.5 H* 7.6 H* AST 67 H 68 H 57 H ALT 104 H 82 H 84 H 03/11/25 05:15 WBC 10.44 RBC 3.20 L Hgb 7.4 L* Hct 24.2 L MCV 76 L MCH 23 L MCHC 31 L Plt Count 264 BUN 4 L Creatinine 0.5 Estimated Creat Clear 154.30 Estimated GFR 128 Magnesium 6.0 H* AST 39 H ALT 63 H OB - PN: A/P Delivery Assessment and Plan (1) Severe preeclampsia: Status: Acute Plan Mame is a 34yo seen on PPD1 from [facility]. Intrapartum course complicated by development of preE with SF (transaminitis) and acute blood loss anemia. 1. Continue magnesium sulfate for seizure prophylaxis until 24hr , ending at 10:53 Am on 03/11 2. Continue serial preeclampsia labs every 6hr. Transaminitis is noted to improve throughout hospitalization. 3. Continue Nifedipine ER 30mg daily for BP control. Blood pressures have been normal overnight - plan to modify dose if necessary. Patient is asymptomatic, aside from intermittent headache that does respond a Tylenol/ibuprofen. 4. Monitor for ongoing signs/symptoms of acute blood loss anemia. AM hemoglobin of 7.4, where patient notes she does have slight dizziness with ambulation but attributes that to feeling woozy off magnesium. No tachycardia, dizziness, chest pain or dyspnea. discussed that a blood transfusion could be indicated for symptomatic anemia with a hemoglobin of less than 8. Patient would like to wait and see how she feels after magnesium is off. In addition, she has a repeat set of labs at 11 this morning. Plan to reassess following this result. She notes she is unable to tolerate p.o. iron, where she is using a liquid iron instead. Of note, she did not respond well to this in where she would have a persistent hemoglobin of 8.7 despite her liquid iron. She did have significant improvement after an IV iron transfusion, but patient noted that it was not very well tolerated as she had acid reflux with this. she previously had different IV iron transfusions in her other pregnancies where she received repeat courses, wonders if this could be an option if needed. Plan to reassess following repeat labs at 11 and will diligently monitor symptoms. 5. Continue care and support. 6. Dr. Cris Castillo to assume care on 03/12/25 at 7am. Disposition: recommend patient remain inpatient until at least 24 hours after discontinuation of magnesium sulfate. Potential for dismissal to home tomorrow afternoon.
[2025-03-11 11:10] LABS: Hematocrit 24.7 % (33.0-51.0); Mean Corpuscular HGB Conc 30 gm/dL (32-36); Mean Corpuscular Hemoglobin 23 pg (26-34); Mean Corpuscular Volume 76 fL (80-100); Red Blood Count 3.25 m/uL (4.00-5.20); White Blood Count* 9.49 K/uL (4.50-11.00)
[2025-03-11 11:14] LABS: Hemoglobin* 7.4 gm/dL (12.0-16.0); Slide Review Reflex No
[2025-03-11 11:26] LABS: Alanine Aminotransferase* 61 U/L (4-35); Aspartate Amino Transferase* 38 U/L (12-35); Blood Urea Nitrogen* 4 mg/dL (5-24); Creatinine* 0.5 mg/dL (0.5-1.5); Est. Creatinine Clearance* 154.30; Estimated Glomerular Filt Rate 128 ml/min
[2025-03-12 01:15] VITALS: BP 107/60; PULSE 78; RESP 16; O2SAT 99
[2025-03-12 06:23] VITALS: BP 115/73; PULSE 79; RESP 16; O2SAT 99
[2025-03-12 07:53] LABS: Hematocrit 25.1 % (33.0-51.0); Immature Granulocytes Abs Auto 0.16 K/uL (0.00-0.30); Immature Granulocytes Pct Auto 1.6 %; Lymphocytes Absolute Auto 2.51 K/uL (0.90-2.90); Mean Corpuscular HGB Conc 31 gm/dL (32-36); Mean Corpuscular Hemoglobin 24 pg (26-34); Mean Corpuscular Volume 77 fL (80-100); RDW Coefficient of Variation % 26.5 % (11.5-15.5); Red Blood Count 3.26 m/uL (4.00-5.20); White Blood Count* 10.32 K/uL (4.50-11.00)
[2025-03-12 08:00] VITALS: BP 119/81; PULSE 88; RESP 16; TEMP 36.8; O2SAT 100
[2025-03-12 08:04] LABS: Hemoglobin* 7.7 gm/dL (12.0-16.0)
[2025-03-12 08:05] LABS: Slide Review Reflex No
--- NOTE | 2025-03-12 09:52 | P.DS_ITS ---
DS: Providers Provider Time Seen by Provider: 08:45 Date Seen: 03/12/25 Date of admission: 03/09/25 16:40 Primary care physician: Not a Local Provider Admitting Clinician: Shwetha Wakefield CNM Consults: 03/10/25 10:00 Consult to Physician [CONS] Routine Comment: Consulting Provider: Cris Castillo Has provider been notified: Yes Attending Physician on discharge: Cris Castillo MD Date of Discharge: 03/12/25 DS: Diagnosis Discharge Diagnosis (1) Anemia due to acute blood loss: Status: Acute (2) (normal spontaneous vaginal delivery): Status: Acute (3) Severe preeclampsia: Status: Acute Exam Narrative: Exam Narrative: GENERAL APPEARANCE: Pleasant, , well-groomed woman in no acute distress. VITAL SIGNS: as noted in nursing notes HEAD: Normocephalic, atraumatic. THYROID: no masses, nodularity, tenderness or enlargement. LUNGS: Clear to auscultation bilaterally without wheezes, rales or rhonchi. HEART: Regular rate and rhythm with normal S1 and S2. No gallop, rub or murmur. ABDOMEN: Gravid. Soft, nontender, nondistended, with normal bowels sounds throughout. Fundus is firm at 1 cm below the umbilicus in the midline. EXTREMITIES: No cyanosis, clubbing, or edema. No varicosities. NEUROLOGIC: Normal gait and balance. Normal deep tendon reflexes at bilateral patella 2+/2, equal without clonus. PSYCHIATRIC: alert and oriented x3. Normal speech pattern, eye contact and affect. SKIN: Warm, dry, and well perfused. Good turgor. No lesions, nodules or rashes. Const: Vital Signs, click to edit/add: Vital Signs - 24 hr 03/11/25 12:05 03/11/25 15:06 03/11/25 15:06 Temperature 97.7 F 97.7 F Pulse Rate 96 Pulse Rate [Pulse Oximeter] 103 H 84 Respiratory Rate 16 16 16 Blood Pressure 118/78 Blood Pressure [Le ft Arm] 117/74 118/78 Pulse Oximetry 100 100 99 Oxygen Delivery Me thod Room Air Room Air Room Air 03/11/25 15:27 03/11/25 16:00 03/11/25 16:30 Temperature 97.7 F 98.0 F 97.4 F L Pulse Rate 95 92 85 Pulse Rate [Pulse Oximeter] Respiratory Rate 16 16 16 Blood Pressure 125/78 123/80 113/73 Blood Pressure [Le ft Arm] Pulse Oximetry 100 100 100 Oxygen Delivery Me thod Room Air Room Air Room Air 03/11/25 17:00 03/11/25 17:22 03/11/25 18:17 Temperature 98.2 F 98.0 F 97.7 F Pulse Rate 80 86 89 Pulse Rate [Pulse Oximeter] Respiratory Rate 16 16 16 Blood Pressure 117/74 117/76 125/81 Blood Pressure [Le ft Arm] Pulse Oximetry 100 100 98 Oxygen Delivery Me thod Room Air Room Air Room Air 03/11/25 20:45 03/12/25 01:15 03/12/25 06:23 Temperature 97.7 F Pulse Rate Pulse Rate [Pulse Oximeter] 79 78 79 Respiratory Rate 16 16 16 Blood Pressure Blood Pressure [Le ft Arm] 122/72 107/60 115/73 Pulse Oximetry 99 99 99 Oxygen Delivery Me thod Room Air Room Air Room Air 03/12/25 08:00 Temperature 98.2 F Pulse Rate Pulse Rate [Pulse Oximeter] 88 Respiratory Rate 16 Blood Pressure Blood Pressure [Le ft Arm] 119/81 Pulse Oximetry 100 Oxygen Delivery Me thod Room Air OB - DS: Summary Hospital Course Hospital Course: Mame is a 34 year old G 3 P 2 now 3 admitted at 39 and 5/7 weeks gestation who was admitted to the Center on 03/09/25 for spontaneous onset of labor however the labor did not progress with artificial rupture of membranes so was augmented with Pitocin. She developed severe preeclampsia by mild range blood pressures and transaminitis. She had an uncomplicated vaginal delivery. Quantitative blood loss was 600 mL. Her course included magnesium sulfate infusion for 24 hours and significant anemia due to acute blood loss with a hemoglobin of 7.4. She received 1 unit packed red blood cells on 03/11/2025 and was feeling significantly better after that 1 unit even though her hemoglobin only increased to 7.7 on 03/12/2025. She will be using liquid iron supplement by mouth at home. She does not tolerate iron tablets. She delivered a viable male infant. She is breast feeding. Her blood pressure has been well controlled on nifedipine ER 30 mg daily Peripartum Data Infant delivery method: Vaginal Laceration description: Vaginal - 1st Degree complications: other (anemia) [place] Gender: Male Status at Discharge Functional status at discharge: independent ambulation Overall status at discharge: patient is back to baseline Time Spent with Patient Time attestation: Total time spent providing and/or coordinating discharge services: Time spent: Less than 30 minutes Discharge Plan Discharge Disposition: Home, Self-Care Date of Admission: 03/09/25 16:40 Attending Provider on Discharge: Cris Castillo Consulting Providers: Cris Castillo Primary Care Provider: Provider,Not a Local Condition: Stable Anticipated Discharge Date/Time: 03/12/25 11:30 Discharge Medications: New docusate sodium 100 mg Capsule 100 mg PO BID PRN (Reason: constipation) Qty: 100 0RF ibuprofen 600 mg Tablet 600 mg PO Q6H PRNQty: 30 0RF ferrous sulfate 220 mg (44 mg iron)/5 mL elixir 22 mg PO Q48H Qty: 473 0RF Continued vitamin D3-vitamin K2 1,250-200 mcg capsule PO Hair, Skin and Nails (biotin) 10,000 mcg tablet,chewable PO DHA 200 mg capsule PO ascorbate calcium (vitamin C) 500 mg tablet 500 mg PO QDAY calcium carbonate [Tums] 200 mg calcium (500 mg) tablet,chewable 200 mg PO BID magnesium glycinate 100 mg magnesium capsule PO .QD Discharge Orders: Discharge Order (Routine); Ordered 03/12/25 Ordered By: Cris Castillo Patient Education: Preeclampsia and Eclampsia After Delivery (GEN) Additional Instructions: Discharge instructions were reviewed with the patient including signs and symptoms of infection and home going medications Nothing vaginally for 6 weeks: no tampons or intercourse Off Work or School for a minimum of 6 weeks Symptoms to report to doctor: * Bleeding that saturates more than one pad per hour * Passing clots larger than the size of a golf ball * Pain not relieved by prescribed medication * Fever above 100.4 degrees Fahrenheit * A foul vaginal odor * Difficulty in emotions, mood, and functions * Thoughts of hurting yourself and/or * Painful, reddened area in your breast * Any drainage, redness, or tenderness in your IV/epidural site * Severe headache that doesn't improve after taking medications * Changes in vision, including temporary loss of vision, blurred vision, and/or light sensitivity * Upper abdominal pain (usually under ribs on the right side) * Decrease in urination or painful, frequent urinating * Chest pain * Shortness of breath * Tenderness or pain with redness and/swelling in the calf(s) of your leg For BP: Check BP at home at least 1x/day. [facility] for a BP check?03/15/2025 Call with BP >/= 140/90 or if </= 95/60 for BP medication management. Follow-up appointments: 1. Optional 2-week visit: discuss infant feeding concerns, review control options and screen for anxiety/depression. 2. 6-week visit for an annual exam. consultation services are available to all mothers and babies for the first year after delivery.? To make an appointment, please call [phone]. Follow Up Appointments: Provider,Not a Local [Primary Care Provider, Family Practice] [facility] [Outside] Forms: [place] Depollution Info Instructions
== END 2025-03-12 12:28 | disposition home or self-care (01) | DRG 560 ==
LOC: OB OUT 16:40 → OB 16:40
PROVIDERS: Advanced Practice Midwife; Obstetrics & Gynecology; Admitting Provider Advanced Practice Midwife; Visit Provider Advanced Practice Midwife
DX: O99.02 Anemia complicating childbirth (principal); O43.193 Other malformation of placenta, third trimester; O14.15 Severe pre-eclampsia, complicating the puerperium; D62 Acute posthemorrhagic anemia; R42 Dizziness and giddiness; O70.0 First degree perineal laceration during delivery; M41.20 Other idiopathic scoliosis, site unspecified; W01.198A Fall on same level from slipping, tripping and stumbling with subsequent striking against other object, initial encounter; Y92.231 Patient bathroom in hospital as the place of occurrence of the external cause; Z37.0 Single live birth; Z3A.39 39 weeks gestation of pregnancy
CPT/HCPCS: 36415; 36430; 82565; 82570; 83735; 84156; 84450; 84460; 84520; 85018; 85025; 85027; 86592; 86850; 86900; 86901; 86922; 88307; A9270; J3475; J7120; P9016

== ENCOUNTER 2025-04-20 14:04 | Outpatient (CLI) | payer BC, SELFPAY ==
[2025-04-22 03:49] LABS: HPV Source Cervical
[2025-04-26 09:38] LABS: Pap Test Digital Imaging Done
== END 2025-04-20 14:05 | disposition home or self-care (01) ==
PROVIDERS: Visit Provider Advanced Practice Midwife
DX: Z12.4 Encounter for screening for malignant neoplasm of cervix (principal); Z11.51 Encounter for screening for human papillomavirus (HPV)
CPT/HCPCS: 87624; 87625; 88141; 88142; 88175